=== PATIENT | female | born 1975 | race Hispanic/Latino ===

== ENCOUNTER 2019-09-12 10:30 | Emergency (ER) | payer SELFPAY ==
[2019-09-12 10:54] VITALS: BP 137/79; PULSE 76; RESP 16; TEMP 36.3; O2SAT 100
[2019-09-12 11:13] LABS: Basophils Percent Auto 0.3 % (0.2-1.2); Eosinophils Absolute Auto 0.1 K/mm3 (0-0.3); Hematocrit 37.8 % (37.0-47.0); Hemoglobin 12.5 g/dL (12.0-15.0); Immature Granulocyte Absolute 0.03 K/mm3 (0.00-0.031); Immature Granulocyte Percent A 0.3 % (0-0.5); Lymphocytes Absolute Auto 1.44 K/mm3 (0.9-3.2); Lymphocytes Percent Auto 13.7 % (18.3-44.2); Mean Corpuscular HGB Conc 33.1 g/dl (32-36); Mean Corpuscular Hemoglobin 27.1 pg (26-34); Mean Platelet Volume 11.8 fl (7.4-10.4); Monocytes Absolute Auto 0.6 K/mm3 (0.1-0.6); Monocytes Percent Auto 5.2 % (2.6-8.5); Neutrophils Absolute Auto 8.4 K/mm3 (1.3-6.7); Neutrophils Percent Auto 79.5 % (45.5-73.1); Platelet Count Result 273 k/mm3 (150-375); Red Blood Count 4.61 M/mm3 (4.2-5.4); Red Cell Distribution Width 13.9 % (11.5-14.5); White Blood Count 10.5 K/mm3 (4.5-10.0)
[2019-09-12 11:26] LABS: Alanine Aminotransferase 33 U/L (4-35); Albumin Level 4.3 g/dL (3.5-5.1); Alkaline Phosphatase 98 U/L (38-126); Anion Gap 11.9 mmol/L (7-16); Aspartate Amino Transferase 28 U/L (14-36); Bilirubin,Total 0.3 mg/dL (0.2-1.3); Blood Urea Nitrogen 14 mg/dL (7-17); Calcium 8.9 mg/dL (8.4-10.2); Carbon Dioxide 31 mmol/L (22-30); Chloride 99 mmol/L (98-107); Estimated CRCL calculation 93 ml/min; Estimated Glomerular Filt Rate > 60; Glucose 161 mg/dL (65-105); Lipase 87 U/L (23-300); Potassium 3.9 mmol/L (3.4-5.0); Sodium 138 mmol/L (137-145)
--- NOTE | 2019-09-12 11:43 | ED.ABDPAIN ---
HPI - Abdominal Pain General Chief Complaint: Abdominal Pain <Vikram Mccarthy PA-C - Last Filed: 09/12/19 13:36> Stated Complaint: abd pain <COLT Campuzano Last Filed: 09/12/19 13:36> Time Seen by Provider: 09/12/19 11:12 <Vikram Mccrathy PA-C - Last Filed: 09/12/19 13:36> Source: patient <Vikram Mccarthy PA-C - Last Filed: 09/12/19 13:36> Mode of arrival: ambulatory <COLT Campuzano Last Filed: 09/12/19 13:36> Limitations: no limitations <COLT Campuzano Last Filed: 09/12/19 13:36> History of Present Illness HPI narrative: Patient is a 44-year-old female who presents to emergency department for evaluation of epigastric abdominal pain that is described as an intermittent sharp stabbing pain and had several episodes of emesis earlier this morning. Patient has not taken anything for her symptoms denies similar occurrence in the past. Patient thought there might be a small amount of blood in her emesis but is uncertain. Denies diarrhea rectal bleeding or melena <Vikram Mccarthy PA-C - Last Filed: 09/12/19 13:36> Related Data Allergies/Adverse Reactions: Allergies Allergy/AdvReac Type Severity Reaction Status Date / Time No Known Allergies Allergy Unverified 09/12/19 10:59 <Vikram Mccarthy PA-C - Last Filed: 09/12/19 13:36> Review of Systems Review of Systems: All systems reviewed & are unremarkable except as noted in HPI and below <Vikram Mccarthy PA-C - Last Filed: 09/12/19 13:36> PMFSH Social History Social History: Social History (Updated 09/12/19 @ 11:45 by Vikram Mccarthy PA-C) Smoking status: Never smoker Gender identity (if verbalized by the patient): Female <COLT Campuzano Last Filed: 09/12/19 13:36> Exam Narrative: Exam Narrative: GENERAL: ill-appearing, well-nourished HEAD: Normocephalic, atraumatic. EYES: PERRLA and EOMI. ENT: Nares clear, no rhinorrhea or epistaxis. Mucous membranes moist. CHEST: Clear to auscultation. No respiratory distress. No wheezes rales or rhonchi HEART: Regular rate and rhythm. No murmur heard. Normal peripheral pulses. ABDOMEN: Soft, epigastric tenderness to palpation no rebound or guarding, nondistended EXTREMITIES: Normal range of motion. No edema. SKIN: Warm, dry, no rash. NEURO: No focal deficits. Alert and oriented x3. Cranial nerves II through XII grossly intact PSYCH: Normal mood and affect. <COLT Campuzano Last Filed: 09/12/19 13:36> Course Course Emergency Course: Patient resting comfortably in the room in no distress aware of case findings treatment plan and diagnosis felt appropriate for outpatient reevaluation agreeing to follow-up as directed with primary care felt appropriate for outpatient reevaluation patient felt much better after medications will be discharged home provided with reasons to return felt appropriate for outpatient reevaluation <COLT Campuzano Last Filed: 09/12/19 13:36> Vital Signs Vital signs: Vital Signs Temperature 97.3 F L 09/12/19 10:54 Pulse Rate 76 09/12/19 10:54 Respiratory Rate 16 09/12/19 10:54 Blood Pressure 137/79 09/12/19 10:54 Pulse Oximetry 100 09/12/19 10:54 Temperature 97.3 F L 09/12/19 10:54 Pulse Rate 72 09/12/19 14:06 Respiratory Rate 16 09/12/19 14:06 Blood Pressure 154/94 H 09/12/19 14:06 Pulse Oximetry 99 09/12/19 14:06 <COLT Campuzano Last Filed: 09/12/19 13:36> Vital Signs Temperature 97.3 F L 09/12/19 10:54 Pulse Rate 76 09/12/19 10:54 Respiratory Rate 16 09/12/19 10:54 Blood Pressure 137/79 09/12/19 10:54 Pulse Oximetry 100 09/12/19 10:54 Temperature 97.3 F L 09/12/19 10:54 Pulse Rate 72 09/12/19 14:06 Respiratory Rate 16 09/12/19 14:06 Blood Pressure 154/94 H 09/12/19 14:06 Pulse Oximetry 99 09/12/19 14:06 <Rosalia Batista MD - Last Filed: 09/12/19 18:45> MDM - Abdomin
[2019-09-12] MEDS: FAMOTIDINE 20 MG/2 ML VIAL IV PUSH (11:54)
[2019-09-12] MEDS: ONDANSETRON INJ 4 MG/2 ML VIAL IV PUSH (11:55)
[2019-09-12] MEDS: SODIUM CHLORIDE 0.9% IV 1,000 ML 999 ML IV CONT (11:55)
[2019-09-12] MEDS: LIDOCAINE HCL 2% VISC SOLN 15 ML UDC 20 ML PO (11:55)
[2019-09-12] MEDS: MAG HYDROX/AL HYDROX/SIMETH 30 ML UDC PO (11:55)
[2019-09-12 12:36] LABS: Add Urine Microscopic? YES; Appearance Urine Clear (Clear); Bilirubin Urine Negative (Negative); Blood Urine Negative (Negative); Color Urine Yellow (Yellow); Glucose Urine UA Negative (Negative); Ketones Urine Negative (Negative); Leukocyte Esterase Ur Negative LEU/UL (Negative); Mucus Urine Rare /lpf; Nitrate Urine Negative (Negative); Protein Urine Negative (Negative); RBC Urine 0-2 /hpf (0-2); Specific Grav Ur 1.019 (1.001-1.035); Squamous Epithelial Cell Urine Few /hpf (Few); Urobilinogen Urine Negative mg/dL (<2.0); WBC Urine 0-3 /hpf
[2019-09-12 12:57] VITALS: BP 143/86; PULSE 67; RESP 16; O2SAT 100
[2019-09-12 14:06] VITALS: BP 154/94; PULSE 72; RESP 16; O2SAT 99
== END 2019-09-12 14:20 | disposition home or self-care (01) ==
PROVIDERS: Emergency Provider General Practice
DX: R10.13 Epigastric pain (principal)
CPT/HCPCS: 36415; 80053; 81001; 81025; 83690; 85025; 96361; 96374; 96375; 99284; A9270; J2405; J7030